=== PATIENT | female | born 1985 | race Hispanic/Latino ===

== ENCOUNTER → 2018-08-04 | Outpatient (CLI) | payer BC ==
[~2018-08-04] MED LIST: CEPH-578 PO; HYDR-3965 PO; NAPR375T6 PO
== END | disposition home or self-care (01) ==
LOC: OIH 11:13
PROVIDERS: ATTEND Family Medicine
DX: G44.201 Tension-type headache, unspecified, intractable (principal)
CPT/HCPCS: 70450